=== PATIENT | male | born 1950 | race Caucasian/White ===

== ENCOUNTER 2022-12-11 11:42 | Outpatient (CLI) | payer MEDICARE | END 2022-12-11 11:43 | disposition home or self-care (01) | LOC: BICULT 11:42 | PROVIDERS: ATTEND Internal Medicine | DX: R09.89 Other specified symptoms and signs involving the circulatory and respiratory systems (principal); I65.22 Occlusion and stenosis of left carotid artery | CPT/HCPCS: 93880 ==